=== PATIENT | female | born 1995 | race Caucasian/White ===

== ENCOUNTER 2021-07-05 16:41 | Emergency (ER) | payer OTHER ==
[2021-07-05 17:41] VITALS: BP 108/55; PULSE 60; TEMP 98.3; BMI 21.4
[2021-07-05] MEDS ORDERED: ACETAMINOPHEN 500 MG TABLET (FP) PO ONE (18:31)
[2021-07-05] MEDS ORDERED: DIPHENHYDRAMINE HCL 25 MG/10 ML CUP PO ONE (18:32)
[2021-07-05] MEDS ORDERED: ACETAMINOPHEN 500 MG TABLET (FP) ONE (18:33)
[2021-07-05] MEDS ORDERED: diphenhydrAMINE HCL 25 MG CAPSULE (FP) PO ONE ×2 (18:33→18:35)
== END 2021-07-05 18:57 | disposition home or self-care (01) ==
LOC: JER 16:41
DX: R51.9 Headache, unspecified (principal); J30.2 Other seasonal allergic rhinitis
CPT/HCPCS: 99283-25

== ENCOUNTER 2021-12-19 13:22 | Inpatient (IN) | payer OTHER ==
[2021-12-19] MEDS: DEXTROSE 5%-LACTATED RINGERS 1,000 ML IV SCH ×2 (15:15→22:45)
[2021-12-19] MEDS ORDERED: BUTORPHANOL TARTRATE 2 MG/ML VIAL IVPUSH PRN (15:26)
[2021-12-19] MEDS ORDERED: PROMETHAZINE HCL 25 MG/1 ML VIAL IVPUSH ONE (15:26)
[2021-12-19 15:58] VITALS: BMI 31.4
[2021-12-19 16:38] LABS: BASO % 0.3 % (0-2.0); HEMATOCRIT 32.1 % (32.4-45.2); HEMOGLOBIN 10.7 GM/dL (10.7-15.3); LYMPH % 13.6 % (8-40); MCH 28.1 pg (25.7-33.7); MCHC 33.2 g/dl (32.0-36.0); MEAN CELL VOLUME 84.5 fl (80-96); MEAN PLT VOLUME 10.9 fl (7.5-11.1); MONO % 7.3 % (3.8-10.2); NEUT % 77.8 % (42.8-82.8); PLATELET COUNT 129 10^3/uL (134-434); WHITE BLOOD COUNT 6.5 K/mm3 (4.0-10.0)
[2021-12-19 16:43] LABS: INR 0.97 (0.83-1.09); PROTHROMBIN TIME (PATIENT) 11.2 SEC (9.7-13.0)
[2021-12-19 16:45] LABS: METHADONE, UR NEGATIVE (NEGATIVE); PHENCYCLIDINE,URINE NEGATIVE (NEGATIVE); URINE BENZODIAZEPINES NEGATIVE (NEGATIVE)
[2021-12-19 16:45] LABS: ACTIVATED PTT 29.4 SECONDS (25.2-36.5)
[2021-12-19 16:46] LABS: COCAINE, UR NEGATIVE (NEGATIVE); OPIATES, URI NEGATIVE (NEGATIVE); URINE BARBITURATES NEGATIVE (NEGATIVE)
[2021-12-19 16:48] LABS: URINE AMPHETAMINES NEGATIVE (NEGATIVE)
[2021-12-19 17:38] LABS: CALCIUM 8.3 mg/dL (8.5-10.1)
[2021-12-19 17:39] LABS: BLOOD UREA NITROGEN 9.2 mg/dL (7-18)
[2021-12-19 17:42] LABS: CREATININE 0.6 mg/dL (0.55-1.3)
[2021-12-19 18:16] LABS: HEPATITIS B SURFACE AG MATERN NON-REACTIVE (NONREACTIVE)
[2021-12-19 18:34] LABS: HIV INTERPRETATION NEGATIVE (NEGATIVE)
[2021-12-19] MEDS ORDERED: BUTORPHANOL TARTRATE 2 MG/ML VIAL ONE (20:39)
[2021-12-19] MEDS ORDERED: PROMETHAZINE HCL 25 MG/1 ML VIAL ONE (20:39)
[2021-12-20] MEDS: DEXTROSE 5%-LACTATED RINGERS 1,000 ML IV SCH (04:00)
[2021-12-20] MEDS ORDERED: BUTORPHANOL TARTRATE 1 MG/ML VIAL IVPUSH ONE (08:01)
[2021-12-20] MEDS ORDERED: PROMETHAZINE HCL 25 MG/1 ML VIAL IVPUSH ONE (08:01)
[2021-12-20] MEDS ORDERED: PROMETHAZINE HCL 25 MG/1 ML VIAL ONE (08:07)
[2021-12-20] MEDS ORDERED: BUTORPHANOL TARTRATE 1 MG/ML VIAL ONE (08:07)
[2021-12-20] MEDS ORDERED: LIDOCAINE HCL 1% PRESERVATIVE FREE - 30ML VIAL ONE (09:34)
[2021-12-20] MEDS ORDERED: OXYTOCIN 20 UNITS in 0.9% NS 20 UNIT/1,000 ML INFUS.BAG IV ONE (09:34)
[2021-12-20] MEDS ORDERED: WITCH HAZEL 50% (TUCKS) 40 PAD/JAR PAD TP PRN (11:19)
[2021-12-20] MEDS ORDERED: ACETAMINOPHEN 325 MG TABLET (FP) PO PRN (11:19)
[2021-12-20] MEDS ORDERED: IBUPROFEN 600 MG TABLET (FP) PO PRN (11:19)
[2021-12-20] MEDS ORDERED: BISACODYL 10 MG SUPP.RECT RC PRN (11:19)
[2021-12-20] MEDS ORDERED: BENZOCAINE 28 GM HEMORRHOIDAL OINTMENT TP PRN (11:19)
[2021-12-20] MEDS ORDERED: BENZOCAINE 20% 57 GM BOTTLE TP PRN (11:19)
[2021-12-20] MEDS ORDERED: oxyCODONE HCL 5 MG TABLET PO PRN (11:19)
[2021-12-20] MEDS ORDERED: METHYLERGONOVINE MALEATE 0.2 MG/1 ML AMP IM PRN (11:19)
[2021-12-20] MEDS ORDERED: OXYTOCIN 20 UNITS in 0.9% NS 20 UNIT/1,000 ML INFUS.BAG IV SCH (11:30)
[2021-12-20 11:57] LABS: CORD BASE EXCESS -5.3 mmol/L (0-2); CORD BASE EXCESS -8.3 mmol/L (0-2); CORD HCO3 17.2 mmHg (20-29); CORD HCO3 22.5 mmHg (20-29); CORD PCO2 35.4 mmHg (30-78); CORD pH 7.246 (7.14-7.44); CORD pH 7.304 (7.14-7.44)
[2021-12-21 07:29] LABS: BASO % 0.4 % (0-2.0); EOS % 0.6 % (0-4.5); HEMATOCRIT 28.3 % (32.4-45.2); HEMOGLOBIN 9.5 GM/dL (10.7-15.3); LYMPH % 14.2 % (8-40); MCH 28.6 pg (25.7-33.7); MCHC 33.7 g/dl (32.0-36.0); MEAN CELL VOLUME 84.9 fl (80-96); MEAN PLT VOLUME 10.1 fl (7.5-11.1); NEUT % 76.8 % (42.8-82.8); PLATELET COUNT 108 10^3/uL (134-434); RBC 3.33 M/mm3 (3.60-5.2); WHITE BLOOD COUNT 10.5 K/mm3 (4.0-10.0)
[2021-12-21] MEDS ORDERED: SENNOSIDES/DOCUSATE COMBO (SENNA PLUS) TABLET (UD) PO PRN (22:00)
[2021-12-22 12:48] VITALS: BP 101/58; PULSE 55; RESP 20; TEMP 97.7
== END 2021-12-22 15:35 | disposition home or self-care (01) | DRG 560 ==
LOC: JDEL 13:22 → JLDR 14:10 → J3W 12-20 12:10
PROVIDERS: ADMIT Obstetrics & Gynecology; ATTEND Obstetrics & Gynecology
PROC: 10E0XZZ Delivery of Products of Conception, External Approach (ICD-10-PCS; principal; 2021-12-20)
PROC: 0HQ9XZZ Repair Perineum Skin, External Approach (ICD-10-PCS; 2021-12-20)
PROC: 0W8NXZZ Division of Female Perineum, External Approach (ICD-10-PCS; 2021-12-20)
DX: O70.0 First degree perineal laceration during delivery (principal); Z3A.39 39 weeks gestation of pregnancy; Z37.0 Single live birth
CPT/HCPCS: 36415; 36600; 59409; 80048; 80307; 82803; 85025; 85610; 85730; 86780; 86850; 86900; 86901; 87340; 87389; C9803-CS; U0003; U0005

== ENCOUNTER 2023-09-17 12:28 | Emergency (ER) | payer OTHER ==
[2023-09-17 12:33] VITALS: BP 115/75; PULSE 66; RESP 18; TEMP 98; BMI 22.6
[2023-09-17 13:10] LABS: BASO % 0.2 % (0-2.0); EOS % 1.8 % (0-4.5); HEMATOCRIT 43.8 % (32.4-45.2); HEMOGLOBIN 14.6 GM/dL (10.7-15.3); LYMPH % 29.2 % (8-40); MCH 29.6 pg (25.7-33.7); MCHC 33.4 g/dl (32.0-36.0); MEAN CELL VOLUME 88.6 fl (80-96); MEAN PLT VOLUME 9.8 fl (7.5-11.1); MONO % 7.5 % (3.8-10.2); NEUT % 61.3 % (42.8-82.8); PLATELET COUNT 162 10^3/uL (134-434); RBC 4.94 M/mm3 (3.60-5.2); RDW 14.6 % (11.6-15.6); WHITE BLOOD COUNT 5.6 K/mm3 (4.0-10.0)
[2023-09-17 13:13] LABS: EPI CELLS >36 /uL (0-25.1); HCG,QUALITATIVE URINE Positive; HYALINE CASTS 1 /uL (0-3.1); URINE APPEARANCE CLEAR; URINE BACTERIA 517 /uL (0-1359); URINE BILIRUBIN NEGATIVE (NEGATIVE); URINE COLOR YELLOW; URINE GLUCOSE (UA) NEGATIVE (NEGATIVE); URINE KETONE NEGATIVE (NEGATIVE); URINE LEUK ESTERASE NEGATIVE (NEGATIVE); URINE NITRITE NEGATIVE (NEGATIVE); URINE PROTEIN NEGATIVE (NEGATIVE); URINE RBC 48 /uL (0-23.9); URINE UROBILINOGEN 0.2 mg/dL (0.2-1.0); URINE WBC 7 /uL (0-25.8)
[2023-09-17 13:30] LABS: POTASSIUM 4.4 mmol/L (3.5-5.1)
[2023-09-17 13:32] LABS: CALCIUM 9.4 mg/dL (8.5-10.1)
[2023-09-17 13:33] LABS: BLOOD UREA NITROGEN 11.3 mg/dL (7-18)
[2023-09-17 13:36] LABS: CREATININE 0.8 mg/dL (0.55-1.3)
[2023-09-17 13:37] LABS: BILIRUBIN,TOTAL 0.4 mg/dL (0.2-1); TOT PROT 7.9 g/dl (6.4-8.2)
[2023-09-17] MEDS ORDERED: ACETAMINOPHEN 500 MG TABLET (FP) ONE (15:51)
[2023-09-17] MEDS: ACETAMINOPHEN 500 MG TABLET (FP) PO ONE (15:53)
== END 2023-09-17 16:32 | disposition home or self-care (01) ==
LOC: JER 12:28
DX: O26.899 Other specified pregnancy related conditions, unspecified trimester (principal); R10.2 Pelvic and perineal pain; M54.50 Low back pain, unspecified; Z3A.00 Weeks of gestation of pregnancy not specified
CPT/HCPCS: 36415; 76817-TC; 80053; 81003; 84702; 84703; 85025; 87086; 99284-25

== ENCOUNTER 2023-09-19 13:34 | Emergency (ER) | payer OTHER ==
[2023-09-19 13:44] VITALS: BP 111/68; PULSE 60; RESP 20; TEMP 98.5; BMI 29.2
[2023-09-19 14:19] LABS: BASO % 0.2 % (0-2.0); EOS % 0.9 % (0-4.5); EPI CELLS >36 /uL (0-25.1); HEMATOCRIT 39.7 % (32.4-45.2); HEMOGLOBIN 13.4 GM/dL (10.7-15.3); HYALINE CASTS 1 /uL (0-3.1); LYMPH % 17.6 % (8-40); MCHC 33.9 g/dl (32.0-36.0); MEAN CELL VOLUME 88.5 fl (80-96); MONO % 6.1 % (3.8-10.2); NEUT % 75.2 % (42.8-82.8); PLATELET COUNT 162 10^3/uL (134-434); RBC 4.48 M/mm3 (3.60-5.2); RDW 14.6 % (11.6-15.6); URINE APPEARANCE CLOUDY; URINE BACTERIA 430 /uL (0-1359); URINE BILIRUBIN NEGATIVE (NEGATIVE); URINE COLOR YELLOW; URINE GLUCOSE (UA) NEGATIVE (NEGATIVE); URINE KETONE NEGATIVE (NEGATIVE); URINE LEUK ESTERASE 1+ (NEGATIVE); URINE NITRITE NEGATIVE (NEGATIVE); URINE PROTEIN NEGATIVE (NEGATIVE); URINE UROBILINOGEN 0.2 mg/dL (0.2-1.0); URINE WBC 38 /uL (0-25.8); WHITE BLOOD COUNT 7.2 K/mm3 (4.0-10.0)
[2023-09-19 14:26] LABS: URINE RBC 59.4 /uL (0-23.9); YEAST NEGATIVE (NEGATIVE)
== END 2023-09-19 20:41 | disposition home or self-care (01) ==
LOC: JER 13:34
DX: O20.9 Hemorrhage in early pregnancy, unspecified (principal); O26.891 Other specified pregnancy related conditions, first trimester; R10.2 Pelvic and perineal pain; Z3A.01 Less than 8 weeks gestation of pregnancy
CPT/HCPCS: 36415; 76817-TC; 81003; 84702; 85025; 86850; 86900; 86901; 87086; 99284-25